=== PATIENT | female | born 1945 | race Two or more races ===

== ENCOUNTER 2024-05-29 10:28 | Outpatient (CLI) | payer OTHER | END 2024-05-29 10:43 | disposition home or self-care (01) | LOC: SONOGRAMA 10:28 | PROVIDERS: ATTEND Surgery | DX: R49.0 Dysphonia (principal); E03.9 Hypothyroidism, unspecified; E04.2 Nontoxic multinodular goiter; R13.10 Dysphagia, unspecified; K21.9 Gastro-esophageal reflux disease without esophagitis; E11.9 Type 2 diabetes mellitus without complications ==